=== PATIENT | female | born 1965 | race Caucasian/White ===

== ENCOUNTER 2016-09-11 15:55 | Outpatient (RCR) | payer BC | END 2016-09-29 | disposition home or self-care (01) | LOC: PTY 15:55 | DX: M54.9 Dorsalgia, unspecified (principal); M54.2 Cervicalgia; M19.042 Primary osteoarthritis, left hand; M19.041 Primary osteoarthritis, right hand | CPT/HCPCS: 97110; 97140; 97162; G0283 ==

== ENCOUNTER 2016-10-11 16:00 | Outpatient (RCR) | payer BC | END 2016-10-30 | disposition home or self-care (01) | LOC: PTY 16:00 | DX: M54.9 Dorsalgia, unspecified (principal); M54.2 Cervicalgia | CPT/HCPCS: 97110; 97140; G0283 ==

== ENCOUNTER 2016-11-15 16:00 | Outpatient (RCR) | payer BC | END 2016-11-30 | disposition home or self-care (01) | LOC: PTY 16:00 | DX: M54.9 Dorsalgia, unspecified (principal); M54.2 Cervicalgia | CPT/HCPCS: 97035; 97110; 97140; G0283 ==